=== PATIENT | male | born 1970 | race Caucasian/White ===

== ENCOUNTER 2018-03-10 13:27 | Inpatient (IN) | payer OTHER ==
[~2018-03-10] VITALS: Ht 182.9 cm; Wt 112.5 kg
[2018-03-10 13:31] VITALS: BP 100/69
[2018-03-10] MEDS ORDERED: PRILOSEC 20 MG20 MG PO (13:37)
[2018-03-10] MEDS ORDERED: LISINOPRIL10 MG PO (13:37)
[2018-03-10] MEDS ORDERED: STELARA45 MG/0.1 INJECTION (13:38)
--- NOTE | 2018-03-10 13:56 | NUR ---
PT'S FRIEND, SUN, STATES THAT HE WAS WITH THE PT BEFORE THE PT PASSED OUT. SUN STATES THAT THE PT SAT IN A TRUCK TO COOL OFF FROM BEING OUTSIDE, THE PT'S EYES STARTED ROLLING IN THE BACK OF HIS HEAD AND THE PATIENT PASSED OUT. SUN STATES THAT THIS LASTED APPROXIMATELY 2 MINUTES. EMS WAS THEN CALLED.
[2018-03-10 14:04] LABS: ABSOLUTE BASOPHILS 0.1 thou/uL (0.0-0.2); ABSOLUTE EOSINOPHILS 0.1 thou/uL (0.0-0.7); ABSOLUTE LYMPHOCYTES 3.6 thou/uL (0.8-5.3); ABSOLUTE MONOCYTES 1.2 thou/uL (0.0-1.2); ABSOLUTE NEUTROPHILS 6.8 thou/uL (1.6-8.1); BASOPHILS 0.4 %; EOSINOPHILS 0.9 %; HEMATOCRIT 43.5 % (42.0-52.0); HEMOGLOBIN 14.7 gm/dL (14.0-18.0); LYMPHOCYTES 30.8 %; MCH 29.2 pg (26.0-34.0); MCHC 33.9 g/dL (28.0-37.0); MCV 86.3 fL (80.0-100.0); MONOCYTES 10.2 %; MPV 9.4 fl. (7.2-11.1); NUCLEATED RBCS 0 /100WBC; PLATELET COUNT* 349 thou/uL (150-400); POLYS 57.7 %; RBC 5.04 mil/uL (4.50-6.00); RDW-CV 13.4 % (10.5-14.5); WBC 11.8 thou/uL (4.0-11.0)
[2018-03-10 14:13] LABS: ANION GAP 16 mmol/L (7-16); BUN 26 mg/dL (7-18); CHLORIDE 97 mmol/L (98-107); CO2 24 mmol/L (21-32); CREATININE 2.5 mg/dL (0.6-1.3); GLUCOSE 153 mg/dL (70-99); POTASSIUM 3.6 mmol/L (3.5-5.1); SODIUM 137 mmol/L (136-145)
[2018-03-10 14:19] LABS: ALBUMIN 4.7 g/dL (3.4-5.0); ALKALINE PHOSPHATASE 56 U/L (46-116); SGOT 31 U/L (15-37); SGPT 34 U/L (30-65); TOTAL BILIRUBIN 0.6 mg/dL (<0.1-1.0); TOTAL PROTEIN 10.3 g/dL (6.4-8.2); TROPONIN-I LEVEL <0.06 ng/mL (<0.06)
[2018-03-10 15:24] LABS: URINE BILIRUBIN NEGATIVE (Negative); URINE BLOOD NEGATIVE (Negative); URINE CLARITY CLEAR; URINE COLOR YELLOW; URINE GLUCOSE-RANDOM NEGATIVE (Negative); URINE KETONES NEGATIVE (Negative); URINE LEUKOCYTES-REFLEX NEGATIVE (Negative); URINE NITRITE-REFLEX NEGATIVE (Negative); URINE PROTEIN TRACE (Negative); URINE UROBILINOGEN 0.2 E.U./dl (0.2-1.0)
[2018-03-10 15:31] LABS: AMP/METHAMP Negative (Negative); BARBITURATES Negative (Negative); BENZODIAZEPINES Negative (Negative); COCAINE Negative (Negative); METHADONE Negative (Negative); OPIATES Negative (Negative); PCP Negative (Negative); THC Negative (Negative)
[2018-03-10 15:55] VITALS: BP 133/90
--- NOTE | 2018-03-10 19:03 | NUR ---
RECEIVED REPORT.PT TRANSFERRED TO ROOM 228 VIA CART AT 1610.ADMISSION HISTORY AND ASSESSMENT COMPLETED CHARTED. PT ALERT AND ORIENTED X4. PT ON RA. IV LINE PATENT, INTACT AND INFSUING WELL. PT IS STANDBY ASSIST. PT ORIENTED TO ROOM AND CALL LIGHT.DENIES ANY PAIN OR COMPLAINS AT THE TIME OF ADMIT. CALL LIGHT WITHIN REACH. WILL CONTINUE TO MONITOR PT.
[2018-03-10 20:00] VITALS: BP 146/103
--- NOTE | 2018-03-10 20:00 | NUR ---
RECEIVED REPORT AND ASSUMED CARE OF PT, ASSESSMENT COMPLETED. PT STATES HE FEELS MUCH BETTER. STAYING AT BEDSIDE. TELEMETRY ON SHOWING SR. WILL CONT TO MONITOR AND ASSIST NEEDED.
[2018-03-11] VITALS: BP 124/74
[2018-03-11 02:30] LABS: HEMATOCRIT 35.4 % (42.0-52.0); MCH 29.5 pg (26.0-34.0); MCHC 33.9 g/dL (28.0-37.0); MPV 8.7 fl. (7.2-11.1); RBC 4.07 mil/uL (4.50-6.00); RDW-CV 13.6 % (10.5-14.5); WBC 7.7 thou/uL (4.0-11.0)
[2018-03-11 02:55] LABS: ALBUMIN 3.4 g/dL (3.4-5.0); MAGNESIUM 1.9 mg/dL (1.8-2.4); POTASSIUM 3.8 mmol/L (3.5-5.1); TOTAL BILIRUBIN 0.4 mg/dL (<0.1-1.0); TOTAL PROTEIN 7.1 g/dL (6.4-8.2)
[2018-03-11 02:56] LABS: CALCIUM 8.7 mg/dL (8.5-10.1); CREATININE 1.4 mg/dL (0.6-1.3)
[2018-03-11 03:37] VITALS: BP 101/71
--- NOTE | 2018-03-11 05:50 | NUR ---
SLEPT WELL TONIGHT. ASSISTED PT TO BR AND BACK WITH STEADY GAIT. NO CHANGE IN ASSESSMENT. TELEMETRY CONT TO SHOW SR. HS GOALS OF REST AND SAFETY ACHIEVED. HOURLY ROUNDING OBSERVED.
[2018-03-11 08:00] VITALS: BP 128/84
--- NOTE | 2018-03-11 10:08 | NUR ---
MET WITH PT AND S/O AARON TO DISCUSS HOME SITUATION/DC PLANNING. PT LIVES WITH AARON. HE WORKS AND IS INDEPENDENT AND ACTIVE. LIVES IN [place], STATES WAS WORKING IN THIS AREA AND CAME TO HOSPITAL. PT IS UNINSURED, [facility] SE[facility] CHRISTIANSON ([place]?) IN [facility]. PAYS FOR MEDS OUT OF POCKET, DISCUSSED WAYS TO SAVE ON MEDS AND [employer]. PT DENIES DC NEEDS. DID MAKE AWARE THAT [facility] WILL CONTACT PT TO DISCUSS FINANCIAL ASSIST
--- NOTE | 2018-03-11 11:18 | EKG ---
[place] [address] ELECTROCARDIOGRAM REPORT Name: LILIYAABHISELINA Room: [address] [place] .R.#: [id number] Admission: 03/10/18 Attend Phys: Jannie Reyes MD Discharge: Date of : 70 Report #: [id number] THIS REPORT FOR: //name// [facility] ED Test Date: 2018-03-10 Test Time: 13:52:27 Pat Name: SELINA LOVELL Department: Room: Gender: Supervisor Brine: : 1970 Requested By: Niki Rodriguez Order Number: [id number] MD: Kehinde Burks Measurements Intervals [place] Rate: 81 P: 45 MS: 161 QRS: 16 QRSD: 103 T: 21 QT: 381 QTc: 443 Interpretive Statements Sinus rhythm Probable left atrial enlargement ST elev, probable normal early repol pattern No previous ECG available for comparison Electronically Signed On 03-11-2018 11:18:13 CDT by Kehinde Burks [email or web address] <ELECTRONICALLY SIGNED> By: Kehinde Burks MD, [facility] 03/11/18 1118 135 51 Kehinde Burks MD, [facility] /EPI
--- NOTE | 2018-03-11 11:55 | NUR ---
ASSUMED CARE OF PT AFTER REPORT AT 729. PT ALERT & ORIENTED X4. VSS. PHYSICAL ASSESSMENT COMPLETED & CHARTED. SR ON TELE. PT ON RA.IV LINE PATENT, INTACT AND INFUSING WELL. PT UP WITH 1 ASSIST. DENIES ANY PAIN OR COMPLAIN AT THIS TIME. CALL LIGHT WITHIN REACH. WILL CONTINUE TO MONITOR PT.
[2018-03-11 12:00] VITALS: BP 122/81
[2018-03-11 13:07] LABS: CALCIUM 8.5 mg/dL (8.5-10.1); CREATININE 1.1 mg/dL (0.6-1.3); POTASSIUM 4.3 mmol/L (3.5-5.1)
[2018-03-11 14:05] VITALS: BP 122/81
--- NOTE | 2018-03-11 14:37 | NUR ---
DISCHARGE ORDERS RECEIVED. DC INSTRUCTIONS, CARE NOTES, SCRIPTS & FFUP APPOINTMENT GIVEN TO PT. PT COMMUNICATES UNDERSTANDING OF DISCHARGE TEACHING. IV LINE AND AUTO SERVICE ADVISOR REMOVED.PT DC WITH ALL BELONGINGS AND PAPERWORK VIA WHEELCHAIR WITH NURSING STAFF TO FRIENDS OWN VEHICLE.
--- NOTE | 2018-03-11 14:43 | NUR ---
THIS NURSE AGREES WITH ALL CHARTING AND DOCUMENTATION COMPLETED BY ROLA HAYES THIS SHIFT.
== END 2018-03-11 14:46 | disposition home or self-care (01) | DRG 683 ==
LOC: M.ERS 13:27 → M.2W 14:55 → M.TBA-ER 14:55 → M.2W 16:17
PROVIDERS: Nurse Practitioner Family; ADMIT Internal Medicine
DX: N17.9 Acute kidney failure, unspecified (principal); M62.82 Rhabdomyolysis; I10 Essential (primary) hypertension; L40.50 Arthropathic psoriasis, unspecified; T67.1XXA Heat syncope, initial encounter; E86.0 Dehydration; X58.XXXA Exposure to other specified factors, initial encounter; Y93.89 Activity, other specified; Y92.89 Other specified places as the place of occurrence of the external cause; Y99.8 Other external cause status; Z79.899 Other long term (current) drug therapy